=== PATIENT | male | born 1950 | race Caucasian/White ===

== ENCOUNTER 2019-01-18 16:13 | Emergency (ER) | payer MEDICAID, OTHER ==
[~2019-01-18] VITALS: Ht 195.6 cm; Wt 95.3 kg
[2019-01-18] MEDS ORDERED: LIDOCAINE 1% INJ 20 ML 20 ML VIAL ONE (16:22)
[2019-01-18] MEDS ORDERED: TETANUS,DIPTH,PERTUSS P/F (BOOSTRIX) 0.5 ML VIAL IM ONE (16:30)
--- NOTE | 2019-01-18 17:12 | ED Upper Extremity ---
General Chief Complaint: Laceration Stated Complaint: HAND LAC Nursing Triage Note: Patient reports his right hand became trapped in a chop saw he was using. Large laceration present to right first finger/knuckle. Nursing Sepsis Screen: No Definite Risk Source: patient Exam Limitations: no limitations History of Present Illness Date Seen by Provider: Jan 18, 2019 Time Seen by Provider: 17:07 Initial Comments This 68-year-old white male presents after sustaining a laceration on a chop saw to his right hand shortly prior to presentation emergency department. The patient denies loss of sensation or range of motion of his affected right hand. He denies other injury as accident. The patient's tetanus immunization is out of date. The patient went to urgent care and was referred to the emergency department. Allergies and Home Medications Allergies Uncoded Allergies: bethany (Allergy, Unknown, 01/18/19) Patient Home Medication List Home Medication List Reviewed: Yes Review of Systems Constitutional: No chills, No fever EENTM: No hearing loss Respiratory: No cough Cardiovascular: No chest pain Gastrointestinal: No abdominal pain Genitourinary: no symptoms reported Musculoskeletal: see HPI, other (laceration right hand) Skin: other (10 cm laceration of the right hand from the proximal index metacarpal to the PIP joint over the dorsal surface of the extremity) Psychiatric/Neurological: No Symptoms Reported Past Iwadmwi-Bebgoo-Vltdnx Hx Past Med/Social Hx: Reviewed Nursing Past Med/Soc Hx Patient Social History Alcohol Use: Denies Use Recreational Drug Use: No Smoking Status: Never a Smoker 2nd Hand Smoke Exposure: No Recent Foreign Travel: No Contact w/Someone Who Travel: No Recent Infectious Disease Expo: No Recent Hopitalizations: No Physical Abuse: No Sexual Abuse: No Mistreated: No Fear: No Seasonal Allergies Seasonal Allergies: No Past Medical History Surgeries: Yes (Fractured hip repair) Respiratory: No Cardiac: No Neurological: No Genitourinary: No Gastrointestinal: No Musculoskeletal: Yes (Left hip fracture and surgical repair) Endocrine: No HEENT: No Cancer: No Psychosocial: No Blood Disorders: No Physical Exam Vital Signs Vital Signs - First Documented 01/18/19 16:20 Temp 97.9 Pulse 81 Resp 16 B/P (MAP) 156/77 (103) Pulse Ox 99 O2 Delivery Room Air Capillary Refill : Less Than 3 Seconds Height, Weight, BMI Height: 6'5.00" Weight: 210lbs. oz. 95.366583pl; BMI Method:Stated General Appearance: WD/WN, mild distress Neck: normal inspection Cardiovascular: regular rate, rhythm Respiratory: lungs clear Gastrointestinal: normal bowel sounds, soft Back: normal inspection Shoulder: normal inspection Elbow/Forearm: normal inspection Wrist: Yes normal inspection Hand: Right (there is a 10 cm laceration from the proximal portion of the index metacarpal to the PIP joint of the dorsum of the right hand. Although the tendon is exposed there is a normal neurovascular exam. No foreign bodies were appreciated. No other injury was noted) Neurologic/Tendon: normal sensation, normal motor functions, normal tendon functions Neurologic/Psychiatric: no motor/sensory deficits Skin: other (laceration right hand as described above.) Progress/Results/Core Measures Results/Orders My Orders Orders - JORGE A TRINIDAD MD Lidocaine 1% Inj 20 Ml (Xylocaine 1% Inj (01/18/19 16:22) Dipht,Pertuss(Acell),Tet Adult (Boostrix (01/18/19 16:30) Hand 3 View Right (01/18/19 17:00) Medications Given in ED Current Medications Medications Dose Ordered Sig/Emma Route Start Time Stop Time Status Last Admin Dose Admin Lidocaine HCl 20 ml STK-MED ONCE .ROUTE 01/18/19 16:22 01/18/19 16:24 DC 01/18/19 16:36 20 ML Vital Signs/I&O 01/18/19 16:20 Temp 97.9 Pulse 81 Resp 16 B/P (MAP) 156/77 (103) Pulse Ox 99 O2 Delivery Room Air Blood Pressure Mean: 103 Progress Progress Note : Time: 17:11 Progress Note An x-ray of the right hand was obtained which was unremarkable. Patient received a TDAP. Under usual sterile conditions using 1 percent Xylocaine for local anesthesia the laceration was copiously cleaned and irrigated. The clean wound was then approximated in an interrupted fashion employment 5-0 nylon. Approximately 30 sutures were used for closure of the 10 cm laceration. A dressing was applied to the right hand. Patient declined pain medications. Patient was placed on 5 days of Bactrim DS as a prophylactic antibiotic. Departure Impression Primary Impression: Laceration Disposition: 01 HOME, SELF-CARE Condition: Improved Departure-Patient Inst. Decision time for Depature: 17:13 Referrals: SELF,LAKSHMI FRANKS Patient Instructions: Laceration Repair With Stitches (DC) Add. Discharge Instructions: Bactrim DS as prescribed. Ibuprofen or Naprosyn for pain at home. Sutures out in 2 weeks. Watch for signs of infection. Limit use of the right hand for the next 2 weeks. Return if any problems or questions. All discharge instructions reviewed with patient and/or family. Voiced understanding. JORGE A TRINIDAD MD Jan 18, 2019 17:12
--- NOTE | 2019-01-18 17:23 | Diagnostic Imaging Report ---
INDICATION: Injury COMPARISON: None. EXAMINATION: Three views of the right hand were obtained. FINDINGS: No fractures, dislocations, or other acute bony abnormalities identified. Joint spaces are well maintained throughout. There is mild soft tissue swelling. No radiopaque foreign bodies are identified. IMPRESSION: Mild soft tissue swelling; otherwise, unremarkable radiographic exam of the right hand. Dictated by: Dictated on workstation # [id number]
[2019-01-18 17:30] VITALS: BP 156/77
[2019-01-18] MEDS ORDERED: TRIM/SULFAMETH 160/800 (SEPTRA DS) TAB PO ONE (17:30)
== END 2019-01-18 17:30 | disposition home or self-care (01) ==
LOC: ER FS 16:19
DX: S61.411A Laceration without foreign body of right hand, initial encounter (principal); Z88.5 Allergy status to narcotic agent; Z23 Encounter for immunization; W27.8XXA Contact with other nonpowered hand tool, initial encounter
CPT/HCPCS: 12015; 73130; 90715